=== PATIENT | female | born 1980 | race Caucasian/White ===

== ENCOUNTER 2016-11-26 20:44 | Inpatient (IN) | payer SELFPAY ==
[~2016-11-26] VITALS: Ht 165.1 cm; Wt 58.0 kg
[2016-11-27] MEDS ORDERED: METHADONE HCL10 MG PO (04:25)
[2016-11-27] MEDS ORDERED: LACTULOSE10 GM/152 PO (04:26)
[2016-11-27] MEDS ORDERED: HYDROCODONE BIT PO (04:27)
[2016-11-27 05:23] VITALS: BP 115/77
[2016-11-27 07:00] VITALS: BP 96/61
[2016-11-27 10:39] LABS: urine erythrocyte NEGATIVE (NEGATIVE)
[2016-11-27 10:40] LABS: microscopic required? YES
[2016-11-27 10:53] LABS: AMPHETAMINE QUAL UR POSITIVE (NEG <=1000)
[2016-11-27 12:00] VITALS: BP 118/69
[2016-11-27 16:00] VITALS: BP 116/72
[2016-11-27 19:51] VITALS: BP 115/73
[2016-11-27 22:00] VITALS: BP 111/68
[2016-11-28 21:54] VITALS: BP 106/62
[2016-11-29 09:34] VITALS: BP 110/64
[2016-11-29 17:47] VITALS: BP 109/68
[2016-11-29 23:06] VITALS: BP 102/66
[2016-11-30 06:12] VITALS: BP 102/65
[2016-11-30 09:32] VITALS: BP 103/75
[2016-11-30 17:07] VITALS: BP 109/74
[2016-11-30 20:03] VITALS: BP 99/75
[2016-12-01 17:03] VITALS: BP 110/71
[2016-12-01] MEDS ORDERED: HYDROCODONE BIT PO (17:20)
[2016-12-01] MEDS ORDERED: ELA25 PO (17:21)
[2016-12-01] MEDS ORDERED: KEPPRA500 MG PO (17:23)
[2016-12-01] MEDS ORDERED: SEROQUEL200 MG PO (17:24)
[2016-12-01] MEDS ORDERED: NOR10T PO (17:24)
[2016-12-01 17:41] VITALS: BP 110/71
== END 2016-12-01 17:55 | disposition home or self-care (01) | DRG 92 ==
LOC: ED 20:44 → DU 11-27 03:40 → IC 11-27 03:40 → DU 11-27 21:42 → MU 11-28 18:11
PROVIDERS: Family Medicine Sports Medicine; ADMIT Student in an Organized Health Care Education/Training Program
DX: G92 Toxic encephalopathy (principal); F30.9 Manic episode, unspecified; F19.239 Other psychoactive substance dependence with withdrawal, unspecified; F11.20 Opioid dependence, uncomplicated; Y92.009 Unspecified place in unspecified non-institutional (private) residence as the place of occurrence of the external cause; Z88.0 Allergy status to penicillin; Z88.3 Allergy status to other anti-infective agents; F29 Unspecified psychosis not due to a substance or known physiological condition; G40.909 Epilepsy, unspecified, not intractable, without status epilepticus; F14.10 Cocaine abuse, uncomplicated; Z91.19 Patient's noncompliance with other medical treatment and regimen; M79.7 Fibromyalgia
CPT/HCPCS: 87491; 87591; G0480; J1170; J1200; J1630; J1953; J2060; J2270; J2405; J7030

== ENCOUNTER 2020-01-18 09:47 | Inpatient (IN) | payer OTHER ==
[~2020-01-18] VITALS: Ht 165.1 cm; Wt 65.8 kg
[~2020-01-18 09:47] MED LIST: ELA25 PO; HYDROCODONE BIT PO; KEPPRA500 MG PO; LACTULOSE10 GM/152 PO; METHADONE HCL10 MG PO; NOR10T PO; SEROQUEL200 MG PO
[2020-01-18 10:04] VITALS: Ht 165.1 cm; Wt 65.8 kg
[2020-01-18 11:46] LABS: AMPHETAMINE QUAL UR NONE DETECTED (See below)
[2020-01-18 11:47] LABS: microscopic required? YES; urine erythrocyte NEGATIVE (NEGATIVE)
[2020-01-18 12:03] LABS: CARBON DIOXIDE 26.9 mmol/L (21-32); CHLORIDE SERUM 98 mmol/L (98-107); CREATININE SERUM 0.9 mg/dL (0.6-1.0); GFR1 > 60 mL/min; GLUCOSE SERUM 97 mg/dL (74-106); SODIUM SERUM 131 mmol/L (136-145)
[2020-01-18 12:07] LABS: ALKALINE PHOSPHATASE 75 U/L (46-116); ALT/SGPT 12 U/L (14-59); AST/SGOT 12 U/L (15-37); BILIRUBIN TOTAL 0.13 mg/dL (0.20-1.00); TOTAL PROTEIN, SERUM 6.9 g/dL (6.4-8.2)
[2020-01-18 12:26] LABS: ALBUMIN 3.2 g/dL (3.4-5.0)
[2020-01-18 14:30] LABS: BASOPHIL % 0.4 % (0-2); PLATELET COUNT 410 x10^3mcL (130-400); RED CELL DISTRIBUTION WIDTH 14.1 % (11.5-14.5)
[2020-01-20 13:32] VITALS: BP 124/88
[2020-01-21 05:28] VITALS: BP 107/72
[2020-01-21 08:52] VITALS: BP 130/84
[2020-01-21 20:38] VITALS: BP 118/78
[2020-01-22] MEDS ORDERED: VIMPAT200 M1 PO (08:54)
[2020-01-22 08:56] VITALS: BP 125/77
[2020-01-22 16:06] VITALS: BP 140/89
[2020-01-22 21:00] VITALS: BP 104/74
[2020-01-24 06:13] VITALS: BP 122/82
[2020-01-24 21:09] VITALS: BP 124/80
[2020-01-25 17:45] VITALS: BP 141/64
[2020-01-25 21:12] VITALS: BP 125/84
[2020-01-26 05:44] VITALS: BP 113/69
[2020-01-26 09:05] VITALS: BP 124/79
[2020-01-26 18:28] VITALS: BP 132/84
[2020-01-26 21:48] VITALS: BP 125/87
[2020-01-28 06:13] VITALS: BP 122/83
[2020-01-28 13:55] VITALS: BP 110/72
[2020-01-28 15:58] VITALS: BP 110/72
[2020-01-28 20:00] VITALS: BP 116/79
[2020-01-29 08:10] VITALS: BP 111/76
[2020-01-29 12:05] VITALS: BP 117/72
[2020-01-29 19:11] VITALS: BP 137/89
[2020-01-30 11:41] VITALS: BP 110/72
== END 2020-01-30 14:15 | disposition hospice, inpatient (51) | DRG 426 ==
LOC: ED 09:47 → MU 01-20 02:19
PROVIDERS: Emergency Medicine; ADMIT Internal Medicine; ATTEND Internal Medicine
DX: E87.1 Hypo-osmolality and hyponatremia (principal); C79.51 Secondary malignant neoplasm of bone; F43.10 Post-traumatic stress disorder, unspecified; G40.909 Epilepsy, unspecified, not intractable, without status epilepticus; F32.9 Major depressive disorder, single episode, unspecified; F41.9 Anxiety disorder, unspecified; E87.5 Hyperkalemia; M24.59 Contracture, other specified joint; G81.91 Hemiplegia, unspecified affecting right dominant side; T14.91XA Suicide attempt, initial encounter; Z20.828 Contact with and (suspected) exposure to other viral communicable diseases; Z88.0 Allergy status to penicillin; Z88.8 Allergy status to other drugs, medicaments and biological substances; Z90.710 Acquired absence of both cervix and uterus; Z92.21 Personal history of antineoplastic chemotherapy; Z79.899 Other long term (current) drug therapy; Z81.8 Family history of other mental and behavioral disorders
CPT/HCPCS: G0378; G0480; J1200; J2060; J2405; J2550; U0003